=== PATIENT | female | born 1985 | race Caucasian/White ===

== ENCOUNTER 2017-07-01 12:23 | Emergency (ER) | payer OTHER ==
[~2017-07-01] VITALS: Ht 160 cm; Wt 65.8 kg
[~2017-07-01 12:23] MED LIST: PROM118S2 PO; SULF1TAB24 PO
[2017-07-01 12:35] VITALS: BP 122/74
[2017-07-01] MEDS ORDERED: PENI500T PO (13:50)
--- NOTE | 2017-07-01 13:50 | PHYS DOC ---
Past History Past Medical History: No Pertinent History Past Surgical History: No Surgical History Alcohol Use: None Drug Use: None Adult General Chief Complaint Chief Complaint: DENTAL PROBLEM HPI HPI 31-year-old female now presents to the emergency department complaining of left jaw toothache. Patient has a severe cavity which she has not had treated. She has a small amount of swelling of the adjacent gums and it's become painful over the last day. Denies fevers chills sweats or shaking chills. No headache or stiff neck. No chest pain or shortness of breath. No other complaints. Review of Systems Review of Systems Constitutional: Denies fever or chills [] Eyes: Denies change in visual acuity, redness, or eye pain [] HENT: Denies nasal congestion or sore throat [] Respiratory: Denies cough or shortness of breath [] Cardiovascular: No additional information not addressed in HPI [] GI: Denies abdominal pain, nausea, vomiting, bloody stools or diarrhea [] : Denies dysuria or hematuria [] Musculoskeletal: Denies back pain or joint pain [] Integument: Denies rash or skin lesions [] Neurologic: Denies headache, focal weakness or sensory changes [] Endocrine: Denies polyuria or polydipsia [] Allergies Allergies Allergies Coded Allergies Type Severity Reaction Last Updated Verified No Known Drug Allergies 07/01/17 No Physical Exam Physical Exam Well-appearing patient no acute distress trace swelling adjacent to tooth #19 where there is a significant cavity. No tongue elevation submental or anterior cervical lymphadenopathy. Psych shark liver muscle excursion. Supple neck with normal painless range of motion. No tachycardia no murmur clear lungs. Exam otherwise benign Constitutional: Well developed, well nourished, no acute distress, non-toxic appearance. [] HENT: Normocephalic, atraumatic, bilateral external ears normal, oropharynx moist, no oral exudates, nose normal. [] Eyes: PERRLA, EOMI, conjunctiva normal, no discharge. [] Neck: Normal range of motion, no tenderness, supple, no stridor. [] Cardiovascular:Heart rate regular rhythm, no murmur [] Lungs & Thorax: Bilateral breath sounds clear to auscultation [] Abdomen: Bowel sounds normal, soft, no tenderness, no masses, no pulsatile masses. [] Skin: Warm, dry, no erythema, no rash. [] Back: No tenderness, no CVA tenderness. [] Extremities: No tenderness, no cyanosis, no clubbing, ROM intact, no edema. [] Neurologic: Alert and oriented X 3, no focal deficits noted. [] Psychologic: Affect normal, judgement normal, mood normal. [] Current Patient Data Vital Signs Vital Signs Date Time Temp Pulse Resp B/P (MAP) Pulse Ox O2 Delivery O2 Flow Rate FiO2 07/01/17 12:35 98.6 62 18 97 Room Air EKG EKG [] Radiology/Procedures Radiology/Procedures [] Course & Med Decision Making Course & Med Decision Making Pertinent Labs and Imaging studies reviewed. (See chart for details) Signs and symptoms consistent with cavity with dental infection and trace adjacent facial swelling with no fluctuance or rinse of drainable abscess. Patient has a supple neck with no adenopathy. Vital signs unremarkable. Patient is aware to finish penicillin as prescribed. She will take ibuprofen and Tylenol every 6 and 4 hours respectively as needed for pain. Patient's worker complains of close follow-up with a dentist for reevaluation and definitive care. [] Dragon Disclaimer Dragon Disclaimer This chart was dictated in whole or in part using Voice Recognition software in a busy, high-work load, and often noisy Emergency Department environment. It may contain unintended and wholly unrecognized errors or omissions. Departure Departure: Impression: Primary Impression: Dental caries Additional Impression: Toothache Disposition: HOME, SELF-CARE Condition: STABLE Referrals: PCP,NO (PCP) Patient Instructions: Dental Caries Additional Instructions: You have a dental infection from a cavity. Finished penicillin as prescribed and follow up with a dentist in 2 days for reevaluation and definitive dental care. Take ibuprofen 800 mg every 6 hours and take Tylenol or [place] as needed for pain as well Scripts Penicillin V Potassium (PENICILLIN V POTASSIUM) 500 Mg Tablet 1 TAB PO QID, #40 TAB Prov: BREANNE SAENZ MD 07/01/17 Problem Qualifiers BREANNE SAENZ MD Jul 01, 2017 13:50
[2017-07-01] MEDS ORDERED: KETOROLAC 60 MG/2 ML VIAL. IM ONE (14:00)
== END 2017-07-01 14:06 | disposition home or self-care (01) ==
LOC: ER 12:23
DX: K02.9 Dental caries, unspecified (principal)
CPT/HCPCS: 96372; 99283; J1885